=== PATIENT | male | born 1970 | race Caucasian/White ===

== ENCOUNTER → 2022-09-23 | Outpatient (CLI) | payer BC, SELFPAY ==
--- NOTE | 2022-09-23 12:34 | RAD_ITS ---
INDICATION: R LUMBAR RADICULOPATHY EXAMINATION/TECHNIQUE: X-RAY - XR Spine Lumbar Min 4 Views: AP, lateral and bilateral oblique views COMPARISON: None. FINDINGS: VERTEBRAE: Preserved vertebral body heights. No fracture, pars defect or suspicious osseous lesion. No spondylolisthesis. Preservation of the normal lumbar lordosis. No significant facet arthropathy. DISCS: Disc spaces are maintained. INCLUDED ABDOMEN: Included bowel gas pattern is non-obstructive. RAD/L/S Spine Min 4 Views IMPRESSION: Negative lumbar spine radiographs. Electronically Signed: Bruce Ruvalcaba MD at 22:32 EDT ,
[2022-09-23 15:05] LABS: Absolute Lymphocyte Count 1.95 X10^3/uL (0.83-4.51); Absolute Neutrophil Count 6.4 X10^3/uL (2.0-7.7); Basophil# 0.04 X10^3/uL; Basophil% 0.4 % (0-1); Eosinophil# 0.08 X10^3/uL; Eosinophils% 0.9 % (0-5); Hematocrit 52.4 % (40-54); Hemoglobin 17.1 g/dL (13.0-16.5); Lymphocyte # 1.95 X10^3/ul (0.83-4.51); Lymphocyte % 21.7 % (19-41); Mean Corp Hgb Conc 32.6 g/dL (32-36); Mean Corpuscular Hgb 30.3 pg (27.0-32.0); Mean Corpuscular Volume 92.9 fL (80-94); Mean Platelet Vol. 11.7 fl (6.2-12.0); Monocyte# 0.54 X10^3/uL; NRBC Flagged by Analyzer 0 % (0-5); Neutrophil # 6.37 X10^3/uL (2.7-7.7); Neutrophil % 70.9 % (47-70); Platelet Count 228 K/mm3 (150-450); RBC Distribution Width CV 13.9 % (11.6-14.6); RBC Distribution Width SD 47.5 fl (35.1-43.9); Red Blood Count 5.64 M/mm3 (4.6-6.2)
[2022-09-23 15:15] LABS: AST(SGOT) 19 U/L (15-37); Alanine Aminotransfer ALT/SGPT 29 U/L (16-61); Albumin, Serum 3.9 g/dL (3.2-5.0); Alkaline Phosphatase 105 U/L (45-117); Anion Gap 4 (5-15); BUN 12 mg/dL (7-18); BUN/Creat Ratio 11.1 RATIO (10-20); Calcium,Total 9.1 mg/dL (8.5-10.1); Chloride 107 mmol/L (98-107); Cholesterol 303 mg/dL (200); Creatinine, Serum 1.08 mg/dL (0.70-1.30); EST Glomerular Filtration Rate 76 mL/min (>60); Est Glom Filt Rate - Afr Amer 92 mL/min (>60); Glucose 100 mg/dL (74-106); High Density Lipoprotein 29 mg/dL; Potassium 3.9 mmol/L (3.5-5.1); Protein, Total 7.9 g/dL (6.4-8.2); Sodium Level 136 mmol/L (136-145); Triglycerides 235 mg/dL; Very Low Density Lipoprotein 47 mg/dL (5-40)
== END | disposition home or self-care (01) ==
PROVIDERS: PCP Family Medicine; Referring Provider Family Medicine; Visit Provider Family Medicine
DX: Z00.00 Encounter for general adult medical examination without abnormal findings (principal); M54.17 Radiculopathy, lumbosacral region
CPT/HCPCS: 36415; 72110; 80053; 80061; 84153; 85025; G0103

== ENCOUNTER 2022-11-04 08:41 | Day surgery (SDC) | payer BC, SELFPAY ==
--- NOTE | 2022-11-04 | COLBX_PTH ---
PATIENT: BRITTANY FLORES LOC: EN U#:[id number] AGE/SX: 51/M ROOM: RE11/04/[address]: Dr. Denise Rosales MD : 1970 BED: DIS: 11/04/2022 SPEC #: [id number] RECD: 11/04/22 14:24 STATUS: TORIN REQ #: [id number] VENKATESH: 11/04/22 00:[address]: Denise Rosales DEPT: SURGICAL PATHOLOGY RECD BY: Steve Mccall ENTERED: 11/05/22 07:44 SP TYPE: COLON BX OTHR DR: Dr. Bruce Brown, DO Tissues: A - Descending colon B - Rectum, NOS C - Rectum, NOS Procedures: Surgery Specimen Level IV HEADER OPERATION: Colonoscopy ? open access (MAC), biopsy, polypectomy PRE-OP DIAGNOSIS: Screening TISSUE SUBMITTED: A - Biopsy polyp descending colon, B - Polyp rectum 15, C - Biopsy rectal polyps MICROSCOPIC DIAGNOSIS A. Polyp descending colon, biopsy: Hyperplastic polyp. B. Rectum polyp, polypectomy: Fragments of tubular adenoma. C. Rectal polyps, biopsy: Fragments of hyperplastic polyp. DAJA:frantz 11/06/2022 MICROSCOPIC DESCRIPTION Slides are reviewed. GROSS DESCRIPTION A - Received in fixative is one container labeled with the patient's name and designated biopsy polyp descending colon. The specimen consists of one irregular fragment of light grace soft tissue that measures 0.3 x 0.3 x 0.1 cm. The specimen is totally submitted in one cassette. B - Received in fixative is one container labeled with the patient's name and designated polyp rectum 15. The specimen consists of a grace-pink polyp measuring 1.2 x 0.7 x 0.7 cm. The apparent base of polyp is inked and bisected. A smaller fragment of grace-pink soft tissue is also noted measuring 0.6 x 0.3 x 0.2 cm. Also a few fragments of fecal material are also noted. The entire specimen is submitted in one cassette. C - Received in fixative is one container labeled with the patient's name and designated polyp rectum biopsy. The specimen consists of multiple irregular fragments of light grace soft tissue that in aggregate measure 1.0 x 0.5 x 0.1 cm. The specimen is totally submitted in one cassette. / DAJA:frantz 11/05/2022 TC:1 CPT: 22346 x3
[2022-11-04 09:03] VITALS: BP 120/89; PULSE 91; RESP 20; TEMP 35.9; O2SAT 99; BMI 25.8
[2022-11-04] MEDS: Lactated Ringers 1,000 ML 15 ML IV (09:14)
--- NOTE | 2022-11-04 10:17 | H&P.OPEN ---
HPI - General General Date of Admission: 11/04/22 HPI Narrative BRITTANY FLORES, is a 51 M who presents for screening colonoscopy. Patient never had previous colonoscopy. Patient is adopted does not know family history. Patient has bowel movements daily denies any blood. Patient states she has had some issues with back pain and occasional right lower quadrant discomfort may be small caliber stool over the last 6 to 8 months. [facility] Medical History (Updated 10/30/22 @ 09:19 by Prudence Caldwell) Back pain Heartburn History of pain when walking Leg cramps Marijuana use Open wound Prostate disease Smoker Tinnitus Wears glasses Home Medications naproxen sodium 220 mg tablet (Aleve) 220 mg PO BID PRN Pain 09/26/22 [History Last Taken Unknown] Allergy/AdvReac Type Severity Reaction Status Date / Time No Known Allergies Allergy Unverified 11/04/22 09:03 Family History (Updated 09/26/22 @ 08:25 by Jessica Michelle) Unknown Adopted Surgical History (Updated 10/30/22 @ 09:19 by Prudence Caldwell) History of surgery on left wrist Hx of vasectomy Social History (Updated 09/26/22 @ 08:25 by Jessica Michelle) current occupational status: employed Smoking Status: Current every day smoker tobacco type: cigarettes Past Medical/Surgical History Planned Operation Planned Operative Procedure/s: CSCOPE OA Previous Hospitalizations/Surgeries HX Hospitalizations: No Any Problems With Anesthesia: No You/Your Family Experience Fever (Hyperthermia) With Anes: No Cholinesterase deficiency: No Cardiovascular Hx Hypertension: No Respiratory Hx Sleep Apnea: No Hx Respiratory Tract Infection/Cold (presently): No Do You Snore Loudly (louder than talking or can be heard): No Do You Often Feel Tired/ Fatigued/ Sleepy Dring Daytime?: No Has Anyone Observed You Stop Breathing During Sleep?: No Result (for STOP score): Negative Smoking Status: Current every day smoker Neurological Does patient have nerve stimulator: No Reproduction : No Miscellaneous Recent Exposure to Contagious Disease: No Allergies No Known Allergies Allergy (Unverified 11/04/22 09:03) Discharge Is Pt Admitted From a Usp, or a Custodial: No After D/C, Where Do you Plan to Go: Return Home Vital Signs Vital Signs Vital Signs: 11/04/22 09:03 06/05/23 09:03 Temperature 96.6 F L Temperature Source Temporal Pulse Rate 91 Respiratory Rate 20 H Respiratory Pattern Normal Blood Pressure 120/89 H Blood Pressure Mean 99 Blood Pressure Source Monitor Blood Pressure Position Semi-Fowlers Blood Pressure Location Left Arm Pulse Ox 99 Oxygen Delivery Method Room Air Weight Weight: 185 lb 3.013 oz Body Mass Index (BMI) 25.8 Physical Exam Const alert, oriented x3 and no apparent distress HEENT normocephalic and head/scalp atraumatic Resp normal respiratory effort Cardio regular rate GI soft to palpation and non-tender; Negative for non-distended Palpation: Negative for guarding Extremity no clubbing, cyanosis or edema Neuro CN's II-XII intact bilaterally Psych mental status grossly normal Assessment & Plan Assessment/Plan (1) Encounter for screening for malignant neoplasm of colon: Surgery Risks - Colonoscopy I discussed with the patient the risks of the procedure: Yes Risks Include but are not Limited To: Risks include but are not limited to: Bleeding, perforation requiring further surgery, inability to complete colonoscopy requiring barium enema.
--- NOTE | 2022-11-04 11:40 | OP.COLON_ITS ---
Patient Name: Alejandro Ann Procedure Date: 11/04/2022 10:49 AM Date of : 1970 Age: 51 Procedure: Colonoscopy Indications: Screening for colorectal malignant neoplasm Providers: Denise Rosales MD Referring MD: Denise Rosales MD Medicines: Monitored Anesthesia Care Patient Profile: This is a 51 year old male. Last Colonoscopy: none. The patient's first colonoscopy is today. Last Colonoscopy: none. The patient's first colonoscopy is today. Complications: No immediate complications. Procedure: Pre-Anesthesia Assessment: - Prior to the procedure, a History and Physical was performed, and patient medications and allergies were reviewed. The patient's tolerance of previous anesthesia was also reviewed. The risks and benefits of the procedure and the sedation options and risks were discussed with the patient. All questions were answered, and informed consent was obtained. Prior Anticoagulants: The patient has taken no previous anticoagulant or antiplatelet agents. ASA Grade Assessment: Per anesthesia. After reviewing the risks and benefits, the patient was deemed in satisfactory condition to undergo the procedure. - Prior to the procedure, a History and Physical was performed, and patient medications and allergies were reviewed. The patient's tolerance of previous anesthesia was also reviewed. The risks and benefits of the procedure and the sedation options and risks were discussed with the patient. All questions were answered, and informed consent was obtained. Prior Anticoagulants: The patient has taken no previous anticoagulant or antiplatelet agents. ASA Grade Assessment: Per anesthesia. After reviewing the risks and benefits, the patient was deemed in satisfactory condition to undergo the procedure. After I obtained informed consent, the scope was passed under direct vision. Throughout the procedure, the patient's blood pressure, pulse, and oxygen saturations were monitored continuously.The colonoscopy was performed without difficulty. The patient tolerated the procedure well. The quality of the bowel preparation was good. The colonoscope was introduced through the anus and advanced to the cecum, identified by the appendiceal orifice, ileocecal valve and palpation. Scope In: 11:07:59 AM Scope Withdrawal Time 0 hours 22 minutes 20 seconds Scope Out: 11:35:39 AM Total Procedure Duration Time 0 hours 27 minutes 40 seconds Findings: The perianal and digital rectal examinations were normal. Five sessile polyps were found in the rectum and descending colon. The polyps were less than 5 mm in size. These polyps were removed with a cold biopsy forceps. Resection and retrieval were complete. A 12 mm polyp was found in the rectum. The polyp was pedunculated. The polyp was removed with a hot snare. Resection and retrieval were complete. The exam was otherwise without abnormality on direct and retroflexion views. Impression: - Five less than 5 mm polyps in the rectum and in the descending colon, removed with a cold biopsy forceps. Resected and retrieved. - One 12 mm polyp in the rectum, removed with a hot snare. Resected and retrieved. Recommendation: - Discharge patient to home. - Resume previous diet. - Continue present medications. - Await pathology results. - Repeat colonoscopy in 3 years for surveillance based on pathology results. Procedure Code(s): --- Professional --- 28091, PT, Colonoscopy, flexible; with removal of tumor(s), polyp(s), or other lesion(s) by snare technique 34027, 59, Colonoscopy, flexible; with biopsy, single or multiple Diagnosis Code(s): --- Professional --- Z12.11, Encounter for screening for malignant neoplasm of colon K62.1, Rectal polyp D12.4, Benign neoplasm of descending colon CPT copyright 2017 [employer]. All rights reserved. The codes documented in this report are preliminary and upon blood donor recruiter supervisor review may be revised to meet current compliance requirements. MD Denise Salinas MD 11/04/2022 11:40:04 AM This report has been signed electronically. Number of Addenda: 0 Note Initiated On: 11/04/2022 10:49 AM
--- NOTE | 2022-11-04 11:40 | OP.CCLET_ITS ---
11/04/2022 Bruce Brown [address] [place] [address] Re : Colonoscopy procedure for Alejandro Ann Dear Dr. Brown This procedure was performed on Friday, November 04, 2022. My impressions and recommendations are as follows: Impressions : - Five less than 5 mm polyps in the rectum and in the descending colon, removed with a cold biopsy forceps. Resected and retrieved. - One 12 mm polyp in the rectum, removed with a hot snare. Resected and retrieved. Recommendations : - Discharge patient to home. - Resume previous diet. - Continue present medications. - Await pathology results. - Repeat colonoscopy in 3 years for surveillance based on pathology results. My findings are described in the full procedure note, which is enclosed. If I can be of further assistance, please feel free to contact me at Doctor phone number(s): , Work: . Sincerely, MD Denise Salinas MD 11/04/2022 11:40:04 AM This report has been signed electronically.
[2022-11-04 11:41] VITALS: BP 120/89; BP 121/80; PULSE 81; RESP 16; TEMP 36.4; O2SAT 95
[2022-11-04 11:45] VITALS: BP 120/89; BP 97/72; PULSE 73; RESP 16; O2SAT 97
[2022-11-04 11:50] VITALS: BP 106/75; BP 120/89; PULSE 67; RESP 16; O2SAT 97
[2022-11-04 11:54] VITALS: BP 103/84; BP 120/89; PULSE 70; RESP 16; TEMP 36.4; O2SAT 98
[2022-11-04 12:07] VITALS: BP 120/89
== END 2022-11-04 12:18 | disposition home or self-care (01) ==
LOC: EN 08:42 → AC 08:51
PROVIDERS: PCP Family Medicine; Referring Provider Surgery; Visit Provider Surgery
PROC: 0DJD8ZZ Inspection of Lower Intestinal Tract, Via Natural or Artificial Opening Endoscopic (ICD-10-PCS; CPT 45378; principal; 2022-11-04 10:10)
DX: Z12.11 Encounter for screening for malignant neoplasm of colon (principal); D12.4 Benign neoplasm of descending colon; D12.8 Benign neoplasm of rectum; Z90.49 Acquired absence of other specified parts of digestive tract; F17.210 Nicotine dependence, cigarettes, uncomplicated
CPT/HCPCS: 45380; 45385; 88305; J7120

== ENCOUNTER → 2022-11-06 | Outpatient (CLI) | payer BC, SELFPAY ==
--- NOTE | 2022-11-06 17:15 | MRI_ITS ---
EXAM: MR LUMBAR SPINE WITHOUT INTRAVENOUS CONTRAST CLINICAL INDICATION: PAIN TECHNIQUE: Multiplanar and multisequence MR images of the lumbar spine without intravenous contrast. COMPARISON: No relevant prior studies available. FINDINGS: VERTEBRAE: Unremarkable. Vertebral body heights are preserved. Normal vertebral bodies and posterior elements. Normal alignment. No spondylolisthesis. There is preservation of the normal lumbar lordosis. SPINAL CORD: Unremarkable. Normal position and signal intensity of the conus medullaris. SOFT TISSUES: Unremarkable. DISCS/SPINAL CANAL/NEURAL FORAMINA: L1-L2: Unremarkable. Normal disc height and morphology. Normal spinal canal and lateral recesses. Normal neuroforamina. L2-L3: Unremarkable. Normal disc height and morphology. Normal spinal canal and lateral recesses. Normal neuroforamina. L3-L4: Unremarkable. Normal disc height and morphology. Normal spinal canal and lateral recesses. Normal neuroforamina. L4-L5: Unremarkable. Normal disc height and morphology. Normal spinal canal and lateral recesses. Normal neuroforamina. L5-S1: Unremarkable. Normal disc height and morphology. Normal spinal canal and lateral recesses. Normal neuroforamina. MRI/Spine Lumbar (Routine) IMPRESSION: Unremarkable MRI of the lumbar spine. Electronically Signed: Dawood Hogan MD at 19:29 EDT ,
== END | disposition home or self-care (01) ==
LOC: MRI 17:09
PROVIDERS: PCP Family Medicine; Referring Provider Family Medicine; Visit Provider Family Medicine
DX: M54.17 Radiculopathy, lumbosacral region (principal)
CPT/HCPCS: 72148

== ENCOUNTER → 2022-11-13 | Outpatient (CLI) | payer BC, SELFPAY ==
--- NOTE | 2022-11-13 15:09 | ART_ITS ---
Reason For Study: RLE cold, painful, and tingling with exertion Procedure A bilateral lower extremity continuous wave Doppler with analog waveform analysis and ankle brachial indexes. Left Segmental Pressures Left brachial= 130mmHg. Left posterior tibial artery = 93mmHg. Left dorsalis pedis artery = 98mmHg. Left digit = 73 mmHg. The left dorsalis pedis waveforms are biphasic. The left posterior tibial artery waveforms are biphasic. Right Segmental Pressures Right brachial= 122mmHg. Right posterior tibial artery = 69mmHg. Right dorsalis pedis artery = 70mmHg. The right dorsalis pedis waveforms are monophasic. The right posterior tibial artery waveforms are monophasic. Indices The right ankle brachial index by the dorsalis pedis is 0.54. The right ankle brachial index by the posterior tibial artery is 0.53. The left ankle brachial index by the dorsalis pedis is 0.75. The left ankle brachial index by the posterior tibial artery is 0.72. The left digital-brachial index is 0.56. VL/Ankle Brachial Index Interpretation Summary Right MICHAEL 0.54, severe arterial insufficiency. Doppler/PVR waveforms of the rig ht ankle severely diminished. Left MICHAEL 0.75, moderate arterial insufficiency. Doppler/PVR waveforms of the le ft ankle moderately diminished. Ordering Physician: Bruce Brown Referring Physician: Bruce Brown Performed By: Kristina Lomeli RVT
== END | disposition home or self-care (01) ==
PROVIDERS: PCP Family Medicine; Referring Provider Family Medicine; Visit Provider Family Medicine
DX: I73.9 Peripheral vascular disease, unspecified (principal)
CPT/HCPCS: 93922

== ENCOUNTER → 2022-11-18 | Outpatient (CLI) | payer BC, SELFPAY ==
[2022-11-18 17:40] LABS: Creatinine, Serum 1.11 mg/dL (0.70-1.30); EST Glomerular Filtration Rate 74 mL/min (>60); Est Glom Filt Rate - Afr Amer 90 mL/min (>60)
== END | disposition home or self-care (01) ==
LOC: LAB 16:25
PROVIDERS: PCP Family Medicine; Referring Provider Surgery Trauma Surgery; Visit Provider Surgery Trauma Surgery
DX: I70.219 Atherosclerosis of native arteries of extremities with intermittent claudication, unspecified extremity (principal)
CPT/HCPCS: 36415; 82565

== ENCOUNTER → 2022-11-28 | Outpatient (CLI) | payer BC, SELFPAY ==
--- NOTE | 2022-11-28 16:59 | CT_ITS ---
ACR Level 3 findings have been noted. An addendum which confirms receipt of the report will follow. STUDY: CTA OF THE ABDOMINAL AORTA AND BILATERAL LOWER EXTREMITIES REASON FOR EXAM: Male, 52 years old. atherosclerosis with claudication. RIGHT LEG NUMBNESS AND PAIN WITH EXTERTION RADIATION DOSAGE (If Supplied By Facility): CTDIvol = ( 6.44 ) mGy, DLP = ( 1134.83 ) mGycm TECHNIQUE: Axial CT angiography multi-detector data acquisition was obtained from the to the following intravenous administration of IV 100mL Isovue-370. Axial images and MIP images were reconstructed from the axial data set. Post-processing of the angiographic images was performed, with multiplanar reformation and 3D reconstruction. Individualized dose optimization techniques were used for this CT. TECHNICAL QUALITY: Good COMPARISON: None. Descriptors of Narrowing: None (0%) Mild (< 50%) Moderate (50-70%) Severe (70-90%) Subtotal/Total Occlusion (90-100%) Non-Evaluable (technically non-diagnostic FINDINGS: Abdominal aorta: Multifocal soft and calcific plaquing without significant narrowing or aneurysmal dilatation. Celiac and superior mesenteric arteries: No demonstrated narrowing. Inferior mesenteric artery: No demonstrated narrowing. Right renal artery(arteries): No demonstrated narrowing. Left renal artery(arteries): No demonstrated narrowing. Right common iliac artery: Occluded. Right external iliac artery: Occluded Right internal iliac artery: Occluded Left common iliac artery: Mild soft plaquing without significant narrowing narrowing. Left external iliac artery: No demonstrated narrowing. Left internal iliac artery: No demonstrated narrowing. RIGHT LOWER EXTREMITY Right common femoral artery: Reconstituted via collaterals without significant narrowing. Right profundus femoris: No demonstrated narrowing. Right superficial femoral: No demonstrated narrowing. Right popliteal artery: No demonstrated narrowing. Right tibioperoneal trunk: No demonstrated narrowing. Right anterior tibial artery: No demonstrated narrowing. Right posterior tibial artery: No demonstrated narrowing. Right peroneal artery: No demonstrated narrowing. LEFT LOWER EXTREMITY Left common femoral artery: No demonstrated narrowing. Left profundus femoris: No demonstrated narrowing. Left superficial femoral: No demonstrated narrowing. Left popliteal artery: No demonstrated narrowing. Left tibioperoneal trunk: No demonstrated narrowing. Left anterior tibial artery: No demonstrated narrowing. Left posterior tibial artery: No demonstrated narrowing. Left peroneal artery: No demonstrated narrowing. Incidental findings include nonspecific fatty infiltrated liver. There is a nodule in the left adrenal measuring 2.2 x 1.55 cm which can be further assessed with MRI if clinically warranted. 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
== END | disposition home or self-care (01) ==
LOC: CT 16:58
PROVIDERS: PCP Family Medicine; Referring Provider Surgery Trauma Surgery; Visit Provider Surgery Trauma Surgery
DX: I73.9 Peripheral vascular disease, unspecified (principal)
CPT/HCPCS: 75635; Q9967

== ENCOUNTER → 2022-12-23 | Outpatient (CLI) | payer BC, SELFPAY ==
--- NOTE | 2022-12-23 09:44 | STRESSREP ---
Stress Test Report Pharmacologic myocardial perfusion stress test. 52-year-old man for preoperative evaluation for vascular surgery Resting EKG demonstrates sinus rhythm with a rate of 75 bpm. Resting blood pressure is 132/84 mmHg. 0.4 mg of regadenoson was infused per usual protocol followed by rapid intravenous saline flush injection. Continuous EKG monitoring was performed. The maximum heart rate was 108 bpm which was 64% of max impacted heart rate the maximum workload was 1 metabolic equivalent. At rest there were no ST or T wave changes noted to suggest ischemia and at peak infusion nonspecific ST changes were noted which did not meet the criteria for ischemia. No clinical angina is noted. The final blood pressure was 120/82 mmHg. Myocardial perfusion protocol. 11.9 mCi of technetium 99m sestamibi was injected at rest. 0.4 mg of regadenoson was infused per usual protocol. At peak infusion to 33.8 mCi of technetium 99m sestamibi was injected stress images were obtained stress and rest images were reconstructed and compared in the short axis vertical long and horizontal long axis. Gated images were also obtained. Perfusion SPECT analysis: Review of the stress images demonstrate normal uptake of tracer noted in all areas of the myocardium except for minimal reduction in the anterior wall is present. The resting images similar demonstrated normal uptake of tracer noted in all areas of the myocardium except for minimal reduction in anterior wall.. No areas of reversibility are noted to suggest ischemia and no previous infarct is noted. Gated SPECT analysis: The gated ejection fraction is 64%. Conclusion: Normal pharmacologic myocardial perfusion stress test. Preserved ejection fraction.
== END | disposition home or self-care (01) ==
LOC: CVS 07:05
PROVIDERS: PCP Family Medicine; Referring Provider Physician Assistant; Visit Provider Physician Assistant
DX: Z01.810 Encounter for preprocedural cardiovascular examination (principal); I70.219 Atherosclerosis of native arteries of extremities with intermittent claudication, unspecified extremity
CPT/HCPCS: 78452; 93017; A9500; A4216; J2785

== ENCOUNTER 2022-12-31 05:18 | Inpatient (IN) | payer BC, SELFPAY ==
--- NOTE | 2022-12-23 07:10 | EKG12_ITS ---
Test Reason : PRE OP Blood Pressure : / mmHG Vent. Rate : 075 BPM Atrial Rate : 075 BPM P-R Int : 160 ms QRS Dur : 092 ms QT Int : 370 ms P-R-T Axes : 064 065 036 degrees QTc Int : 413 ms Normal sinus rhythm Right atrial enlargement Borderline ECG Confirmed by PATRICIA TERESA, CARMEN ([id number]), commissioning editor ANA LAURA GUNN ([id number]) on 12/24/2022 7:10:47 AM Referred By: Pop Tenorio Confirmed By:CARMEN GOMEZ MD
[2022-12-23 10:10] LABS: Hematocrit 55.3 % (40-54); Hemoglobin 17.8 g/dL (13.0-16.5); Mean Corp Hgb Conc 32.2 g/dL (32-36); Mean Corpuscular Hgb 29.8 pg (27.0-32.0); Mean Corpuscular Volume 92.5 fL (80-94); Mean Platelet Vol. 11.1 fl (6.2-12.0); Platelet Count 213 K/mm3 (150-450); RBC Distribution Width CV 13.6 % (11.6-14.6); RBC Distribution Width SD 46.3 fl (35.1-43.9); Red Blood Count 5.98 M/mm3 (4.6-6.2); White Blood Count 11.1 K/mm3 (4.4-11.0)
[2022-12-23 10:50] LABS: Anion Gap 2 (5-15); BUN 18 mg/dL (7-18); BUN/Creat Ratio 16.4 RATIO (10-20); Chloride 108 mmol/L (98-107); Glucose 106 mg/dL (74-106); Potassium 3.9 mmol/L (3.5-5.1); Sodium Level 137 mmol/L (136-145)
[2022-12-31] VITALS (19 sets, daily range): BP systolic 112–157; BP diastolic 64–97; PULSE 77–102; RESP 10–18; TEMP 35.9–36.6; O2SAT 89–966; BMI 24.9; BMI 26.4
--- NOTE | 2022-12-31 | IMM_PTH ---
PATIENT: BRITTANY FLORES LOC: ICU U#:[id number] AGE/SX: 52/M ROOM: ICU02 RE12/31/[address]: Dr. Pop Tenorio MD : 1970 BED: 1 DIS: 01/01/2023 SPEC #: [id number] RECD: 01/01/23 13:24 STATUS: SOUT REQ #: [id number] VENKATESH: 12/31/22 00:[address]: Pop Tenorio DEPT: IMMUNOHISTOCHEMISTRY RECD BY: Isa Urbano ENTERED: 01/01/23 13:26 SP TYPE: IMMUNO OTHR DR: Dr. Bruce Brown, DO Tissues: Inguinal lymph node, NOS Procedures: BCL-2 (add) BCL-6 (add) CD10 (add) CD15 (add) CD20 (add) CD23 (add) CD3 (add) CD30 (add) CD43 (add) CD45 (add) CD5 (add) CD79A (add) KI-67 (add) P53 (add) Pankeratin (initial) PHYSICIAN & [address] [address] SPECIMEN INFORMATION: Tissue Source: Left inguinal lymph node Clinical Info: Atherosclerotic disease Specimen Number: [id number] CPT code: 96474, 25484 x14 METHODOLOGY: Deparaffinized sections of prefer/formalin-fixed tissue or PAP/DQ stained slides are incubated with monoclonal/polyclonal antibodies/oligonucleotide probes. Localization is made via biotin free immunoperoxidase method. Appropriate controls are performed and reacted as expected. Results on target cell population are indicated in the following table: RESULTS: ANTIBODY / CLONE RESULT AE1-3 (AE1/AE3/PCK26) negative CD3 (PS1) positive CD5 (SP10) positive CD10 (56C6) negative CD15 (MMA) negative CD20 (L26) positive CD23 (1B12) negative CD30 (Kamaljit-H2) negative CD43 (L60) positive CD45 (RP2/18) positive CD79a (11E3) positive BCL-2 (bcl-2/100/D5) positive BCL-6 (HA076I/A8) negative P53 (DO-7) negative, null pattern Ki-67 (30-9) positive, low These tests were developed and their performance characteristics determined by [facility]. They may not have been cleared or approved by the U.S. Food and Drug Administration. The FDA has determined that such clearance or approval is not necessary. The above immunohistochemical/dualISH markers are ordered and reviewed by the Pathologist. INTERPRETATION: Left inguinal lymph node, biopsy: Polytypic lymphoid tissue. AM:frantz 01/02/2023
[2022-12-31] MEDS: Lactated Ringers 1,000 ML 15 ML IV (05:45)
--- NOTE | 2022-12-31 07:30 | PCM.HP.BLA ---
History and Physical Allergies No Known Allergies Allergy (Verified 12/11/22 16:21) Medications naproxen sodium 220 mg tablet (Aleve) 220 mg PO BID PRN Pain 09/26/22 [History Confirmed 12/11/22] aspirin 81 mg chewable tablet 81 mg PO DAILY 11/18/22 [History Confirmed 12/11/22] cilostazol 100 mg tablet 100 mg PO BID #60 tabs 11/18/22 [Rx Confirmed 12/11/22] rosuvastatin 20 mg tablet 20 mg PO DAILY 11/18/22 [History Confirmed 12/11/22] PFSH Medical History Back pain Heartburn History of pain when walking Leg cramps Marijuana use Open wound Prostate disease Smoker Tinnitus Wears glasses Surgical History History of surgery on left wrist Hx of vasectomy Family History Unknown Adopted Social History current occupational status: employed Smoking Status: Current every day smoker tobacco type: cigarettes HPI HPI HPI: BRITTANY FLORES, is a 52 M who presents to the office today for follow up of bilateral claudication, r>l. He has had minimal improvement with pletal, symptoms continue to effect work. He had to reduce dose due to side effects. Denies rest pain or foot wounds. ROS General General: Yes fatigue and weakness; No weight change, appetite, colon cancer or breast cancer HEENT HEENT: No difficulty swallowing, eye injury, eye surgery, swollen glands or hoarseness Endo Endocrine: No thyroid disease, diabetes mellitus, thyroid cancer, Hair loss, heat intolerance or cold intolerance Skin Skin: No rash or changing moles Musc Musculoskeletal: Yes back problems; No arthritis, rheumatoid arthritis, gout or joint pain Cardio Cardiovascular: No murmur, pacemaker, heart disease, atrial fibrillation, high blood pressure, heart attack, heart stent, palpitations, shortness of breat with exertion or chest pain Psych Psychiatric: No depression, anxiety or hearing voices Resp Respiratory: No shortness of breath, No sleep apnea, No cough, No COPD, No asthma, No emphysema and No wheezing Gastro Gastrointestinal: Yes abdominal pain, No nausea or vomiting, No diarrhea, No constipation, No blood in stool, Yes acid reflux, No hemorrhoids, No ulcers, No gallbladder problem and No black,tarry stools Kyle Hematologic: Yes blood thinners, No blood disorders, No bleeding, No anemia and No blood clots Additional Details: aspirin Neuro Neurologic: No system reviewed and no additional complaints, except as documented, No as per HPI, No abnormal gait, No abnormal hearing, No abnormal movements, No abnormal speech, No behavioral changes, No burning sensations, No confusion, No convulsions, No disequilibrium, No dizziness, No localized weakness, No frequent falls, No headache(s), No lack of coordination, No loss of vision, No memory loss, Yes numbness, No other visual disturbances, No radicular pain, No restless legs, No sensory deficit, No syncope, Yes tingling, No tremor(s), Yes weakness and No other Exam Const General: cooperative, healthy appearing, comfortable, no acute distress and well developed Nutritional Appearance: well nourished Orientation: alert, awake and oriented x3 HENMT Head: normocephalic and atraumatic Ears: hearing grossly normal bilaterally Nose: external nose normal Eyes General: appearance normal, both eyes and all related structures EOM: EOM intact bilaterally Neck Neck: normal visual inspection, full ROM, no lymphadenopathy and trachea midline Thyroid: thyroid normal Lymphatic: no lymphadenopathy noted Resp Effort & Inspection: normal respiratory effort, able to speak in complete sentences, symmetric chest movement, no audible wheezes, not labored, no stridor and no use of accessory muscles Cardio Rate: regular rate Rhythm: regular rhythm Skin General: no rashes or lesions noted and no erythema Wounds: no wounds Neuro Cranial Nerves: CN's II-XI intact bilaterally and EOM intact bilaterally Speech: speech normal Gait: normal gait Motor: strength 5/5 throughout Sensory Exam: no sensory deficits noted Psych Appearance: grossly normal and well kempt Mental Status: mental status grossly normal Mood: congruent mood Speech and Movement: speech and movement normal Thought Content: normal Judgment: judgment good Coding Level of Care Code Off vis,est,level 3 Diagnoses Atherosclerosis of [place] artery of both lower extremities with intermittent claudication I70.213 Peripheral atherosclerosis location: lower extremity Laterality: bilateral Assessment and Plan Assessment and Plan (1) Atheroscler [place] arteries the extremities w/intermit claudication: Status: Chronic Qualifiers: Peripheral atherosclerosis location: lower extremity Laterality: bilateral Qualified Code(s): I70.213 - Atherosclerosis of [place] arteries of extremities with intermittent claudication, bilateral legs Comment: CTA- images reviewed, right common/external iliac occlusion, left common iliac stenosis >50%, minimal infrainguinal disease, moderate amount mural thrombus lining infrarenal aorta Plan: -would benefit from left iliac stent, fem-fem bypass -cadaver given disease inflow -does not appear to need common femoral endart, but if dissection extensive then possible sartorius flaps
[2022-12-31] MEDS: Cefazolin 2 GM in 0.9% Normal Saline 100 ML IV (08:00)
[2022-12-31] MEDS: Heparin 10,000 UNITS/10 ML Vial 10000 UNITS ×2 (08:23→09:26)
[2022-12-31] MEDS: Heparin Injection (Vial) 5,000 UNIT/ML VIAL 5000 UNIT ×2 (08:33→09:26)
--- NOTE | 2022-12-31 08:48 | LYMN_PTH ---
PATIENT: BRITTANY FLORES LOC: [facility] U#:[id number] AGE/SX: 52/M ROOM: ICU02 RE12/31/[address]: Dr. Pop Tenorio MD : 1970 BED: 1 DIS: 01/01/2023 SPEC #: [id number] RECD: 12/31/22 08:55 STATUS: TORIN REAlyssa #: [id number] VENKATESH: 12/31/22 08:[address]: Pop Tenorio DEPT: SURGICAL PATHOLOGY RECD BY: Alma Ramirez ENTERED: 12/31/22 11:10 SP TYPE: LYMPH NODE OTHR DR: Dr. Bruce Brown, DO Tissues: LYMPH NODE BIOPSY Procedures: Surgery Specimen Level IV HEADER OPERATION: Right femoral bypass, left iliac stent PRE-OP DIAGNOSIS: Atherosclerotic arteries extremities with claudication TISSUE SUBMITTED: Left inguinal lymph node MICROSCOPIC DIAGNOSIS Left inguinal lymph node, biopsy: Consistent with benign lymph node tissue. See comment. AM:frantz 01/01/2023 COMMENT The specimen is evaluated at the time of touch imprints by Dr. Garnett. Immediate Evaluation = Consistent with lymph node tissue. Immunohistochemistry ([id number]) supports the above diagnosis. Flow analysis does not reveal evidence of B-cell or T-cell lymphoma. Complete flow report is viewable in EMR. Case has been reviewed in consultation with Dr. Garnett who concurs with the above diagnosis. LUX:DAJA MICROSCOPIC DESCRIPTION Slides are reviewed. GROSS DESCRIPTION Received fresh in saline for lymphoma protocol labeled with the patient's name is a specimen designated left inguinal lymph node. The specimen consists of a piece of adipose tissue containing two nodules measuring 3.0 x 1.0 x 0.8 cm. Two nodules consistent with lymph nodes are identified measuring 1.0 and 1.5 cm in greatest dimension. Both lymph nodes are bisected. Two touch imprints are prepared. A section is also submitted for flow cytometry study. The entire specimen is submitted in one cassette. / DAJA:frantz 12/31/2022 TC:5 CPT: 03780, 19646
--- NOTE | 2022-12-31 09:20 | RAD_ITS ---
PROCEDURE: ANGIOGRAM - left common iliac artery. REASON FOR EXAM: Male, 52 years old. LT TO RT FEMORAL BYPASS, LT ILIAC STENT, POSS BILAT RADIATION DOSAGE (If Supplied By Facility): ( 165.28 ) mGycm FLUOROSCOPY TIME (if supplied): (4 minutes and 24 seconds) minutes/seconds STERILE BARRIER TECHNIQUE: The following sterile barrier precautions were used during the procedure: hand hygiene; use of 2% chlorhexidine aseptic; use of a cap, mask, sterile gown, sterile gloves, sterile full body drape, and a large sterile sheet. TECHNIQUE: (All elements of maximal sterile barrier technique followed, including US elements as applicable) Intraoperative imaging provided for left common iliac artery angiogram with stent placement. RAD/Fluoroscopy 1 Hr or Less IMPRESSION: Fluoroscopic services provided for left common iliac artery angiogram with stent placement. Electronically Signed: Kade Lo MD at 10:42 EDT ,
--- NOTE | 2022-12-31 11:35 | OP.PCM_ITS ---
Report of Operation Date of Procedure: 12/31/22 Pre-Operative Diagnosis: atherosclerosis with claudication bilateral lower extr emities Post-Operative Diagnosis: same Surgery/Procedure Performed:: left common iliac stent left to right femoral-femoral bypass with cadaver Surgeon: Pop Tenorio Type of Anesthesia: General Estimated Blood Loss (mL): 19 Grafts/Implants Used: cadaver femoral-popliteal artery
--- NOTE | 2022-12-31 11:35 | PCM.OPRPT ---
Report of Operation Date of Procedure: 12/31/22 Pre-Operative Diagnosis: atherosclerosis with claudication bilateral lower extremities Post-Operative Diagnosis: same Surgery/Procedure Performed:: left common iliac stent left to right femoral-femoral bypass with cadaver Surgeon: Pop Tenorio Type of Anesthesia: General Estimated Blood Loss (mL): 19 Description of Procedure: HPI: Patient is a 52-year-old male with lifestyle limiting claudication in the bilateral lower extremities, right worse than left. He is currently working in the claudication symptoms are limiting his ability to complete tasks and maintain employment. He did not tolerate Pletal and has had no significant improvement with exercise. He had a CT scan which revealed total occlusion of the right common and external iliac arteries with a relatively well-preserved infrainguinal system. He also has a diffuse stenosis of the left common iliac artery greater than 50%. He is taken now for endovascular treatment of the left common iliac to optimize inflow and a femoral to femoral bypass. Of note he also has a fair bit of diffuse either mural thrombus or plaque in the entirety of the infrarenal aorta which causes approximately a 30% stenosis. Given the diffuse nature of the aortic disease as well as that the aortic lumen is consistent with the lumen of the only outflow vessel which is the left iliac system felt that this did not need intervention at this time. However given his impaired inflow cadaver femoral-popliteal artery was utilized as it would hopefully he will do better to any diminished inflow pressure. Description of procedure: Upon obtaining informed consent and verification correct patient procedure site patient taken the operating was placed under general anesthesia. He was then positioned prepped and draped in usual sterile fashion a time was performed. Oblique incision was made over the right femoral artery and Bovie left cautery to dissect self-retaining retractors were put in position and further dissection carried out the inguinal ligament which was freed along its inferior border. The femoral sheath was then incised and exposing the common femoral artery and self-retaining retraction of deep in the wound. The femoral sheath was then incised vertically and retractors then placed deeper into the wound. Further dissection carried down to the inguinal ligament which was then freed along the inferior border and the femoral sheath incised exposing the common femoral artery. The femoral sheath was then incised vertically and self-retaining retractors moved deeper in the wound. Sharp dissection used to dissect free the proximal common femoral artery and a right angle used to place a vessel loop. We then dissected distally down to just above the bifurcation a right angle used to place a vessel loop. The vessel was soft with no palpable or visible plaque in the CT scan revealed no significant femoral disease. Next oblique incision made over the left common femoral artery and Bovie electrocautery used to dissect down through subcutaneous tissue. Self-retaining retractors then placed in the position and further dissection carried down to the angle ligament. The femoral sheath was incised vertically exposing the common femoral artery and sharp dissection then used to dissect free proximally and a right angle used to place a vessel loop. Then carried our dissection distally onto the vessel just above the bifurcation and a right angle used to place a vessel loop. There is no significant plaque in the common femoral either by inspection or palpation and the CT scan suggests no significant stenosis. There was a very diminished pulse within the left common femoral artery indicative of the impaired inflow. A tunneler was then used to tunnel from the right to left femoral incisions the patient heparinized and allowed to circulate for 5 minutes. Serial heparin dosing was performed based on ACT results. Next the left common femoral artery was accessed in retrograde fashion with micropuncture needle wire. This was then exchanged for micropuncture sheath through the hand-injection iliofemoral angiogram was performed which revealed satisfactory positioning with no extravasation or dissection. Through the micropuncture sheath [place] wire was advanced into the abdominal aorta the micropuncture sheath exchanged for a 7 [place] sheath. Magnified imaging subtraction angiography of the left iliac system was performed via the femoral sheath and the extent of lesion marked on the screen. Given the length needed to treat a pair of Cook's over 8 x 4 paclitaxel coated self-expanding stents were brought in the field prep for delivery engineer instructions. The initial stent was advanced to the ostia of the common iliac artery and deployed in position. The delivery system was then withdrawn and the second stent advanced into position with satisfactory overlap and distal position just above the iliac bifurcation within nondiseased vessel. The second stent was then deployed and the entirety of the length of stented segment angioplasty with an 8 x 4 angioplasty balloon. Repeat angiography confirmed satisfactory stent positioning with no extravasation or dissection and no residual stenosis. There is improved pulse in the left common femoral artery at this point. The wire and sheath were then withdrawn and the vessels occluded vessel loop. The arteriotomy was then extended with Ricks scissors and a cadaver femoral-popliteal artery which had been thawed per delivery engineer instructions was then beveled to match the arteriotomy and anastomosis performed using a 6-0 Prolene in a running fashion. After completing suture line the vessels were flushed and the graft and the graft marked to maintain orientation. The graft was then clamped just beyond the anastomosis and the distal end secured to the tunneler and pulled through the right femoral incision. The right femoral vessels then occluded Vesseloops in longitudinal arteriotomy created with 11 blade extended Ricks scissors. The graft was then cut the length and beveled to match the arteriotomy and anastomosis performed using 6-0 Prolene in a running fashion. Prior to completing suture and the vessels were back flushed and after completing the suture line the graft was allowed to flush retrograde into the occluded iliac system before reestablishing antegrade flow in the right lower extremity. Satisfactory stasis was noted at the suture line and there is palpable pulse proximal to and distal to each of the femoral anastomoses as well as a palpable pulse within the graft. The vessel interrogated Doppler off on the patent with low resistance signal. The incision was then inspected for hemostasis and closed with 2-0 Vicryl followed by 4 Monocryl Dermabond for the skin Prevena close incision wound vacs were then applied and the patient awakened anesthesia. Was then taken to recovery in anticipated admission to the intensive care unit for hemodynamic monitoring and serial vascular exams. Grafts/Implants Used: cadaver femoral-popliteal artery
[2022-12-31] MEDS: Clopidogrel Bisulfate 300 MG Tablet PO (12:09)
[2022-12-31] MEDS: 0.45% Normal Saline 1,000 ML 100 ML IV ×2 (13:14→21:24)
[2022-12-31] MEDS: Acetaminophen 500 MG Tablet 1000 MG PO ×2 (14:17→21:20)
[2022-12-31] MEDS: Atorvastatin Calcium 40 MG Tablet PO (21:21)
[2022-12-31] MEDS: Cilostazol 50 MG Tablet 100 MG PO (21:21)
[2023-01-01] VITALS (13 sets, daily range): BP systolic 104–127; BP diastolic 54–80; PULSE 65–86; RESP 12–17; TEMP 36.1–36.9; O2SAT 91–100; BMI 26.3
--- NOTE | 2023-01-01 00:36 | NURSING ---
Urinary cath removed prior to shift by Amanuel Alvarenga
[2023-01-01 03:44] LABS: Absolute Lymphocyte Count 1.09 X10^3/uL (0.83-4.51); Absolute Neutrophil Count 11.1 X10^3/uL (2.0-7.7); Basophil# 0.01 X10^3/uL; Basophil% 0.1 % (0-1); Eosinophil# 0.01 X10^3/uL; Eosinophils% 0.1 % (0-5); Hematocrit 44.1 % (40-54); Hemoglobin 14.7 g/dL (13.0-16.5); Lymphocyte # 1.09 X10^3/ul (0.83-4.51); Lymphocyte % 8.4 % (19-41); Mean Corp Hgb Conc 33.3 g/dL (32-36); Mean Corpuscular Hgb 30.4 pg (27.0-32.0); Mean Corpuscular Volume 91.1 fL (80-94); Mean Platelet Vol. 10.9 fl (6.2-12.0); Monocyte# 0.79 X10^3/uL; Monocyte% 6.1 % (0-10); NRBC Flagged by Analyzer 0 % (0-5); Neutrophil % 84.9 % (47-70); Platelet Count 207 K/mm3 (150-450); RBC Distribution Width CV 13.7 % (11.6-14.6); RBC Distribution Width SD 46.1 fl (35.1-43.9); Red Blood Count 4.84 M/mm3 (4.6-6.2); White Blood Count 13.1 K/mm3 (4.4-11.0)
[2023-01-01 03:57] LABS: Anion Gap 4 (5-15); BUN 18 mg/dL (7-18); BUN/Creat Ratio 17.5 RATIO (10-20); Calcium,Total 8.3 mg/dL (8.5-10.1); Chloride 108 mmol/L (98-107); Creatinine, Serum 1.03 mg/dL (0.70-1.30); EST Glomerular Filtration Rate 81 mL/min (>60); Est Glom Filt Rate - Afr Amer 98 mL/min (>60); Estimated Creatinine Clearance 89.35 ml/min; Glucose 173 mg/dL (74-106); Potassium 3.8 mmol/L (3.5-5.1); Sodium Level 140 mmol/L (136-145)
[2023-01-01] MEDS: 0.45% Normal Saline 1,000 ML 100 ML IV (05:37)
[2023-01-01] MEDS: Acetaminophen 500 MG Tablet 1000 MG PO (05:37)
[2023-01-01 07:50] LABS: ACT Activated Clotting Time 137 sec (74-137)
[2023-01-01 07:51] LABS: ACT Activated Clotting Time 245 sec (74-137)
[2023-01-01 07:51] LABS: ACT Activated Clotting Time 287 sec (74-137)
[2023-01-01 07:53] LABS: ACT Activated Clotting Time 221 sec (74-137)
[2023-01-01] MEDS: Aspirin 81 MG TAB.CHEW PO (08:36)
[2023-01-01] MEDS: Clopidogrel Bisulfate 75 MG Tablet PO (08:36)
[2023-01-01] MEDS: Enoxaparin 40 MG/0.4 ML Syringe SC (08:36)
--- NOTE | 2023-01-01 10:20 | CASEMGMT ---
RN?CM?CELL GENETICIST?CM?to room to meet with patient for initial transition planning/care coordination?assessment.?RN?CM?introduced self and role at [facility].? Pt voices understanding and consents to?assessment?at this time.? Pt resting in bed in no distress at this time.? Pt is A/O at this time and answers all questions appropriately.?? Care providers, pharmacy, and demographics verified/updated at this time. PCP: Dr Brown Specialists: Dr Tenorio-vascular Preferred [facility]acy: [facility] Insurance: Tat Momoli Prescription Benefit:?Yes Living Will/HPOA:?Does not currently have LW or HCPOA, but arrangements are in the process of being made to have this completed. Pt declines wanting to meet w/SW . LNOK: 2 adult children. Mother, Bernie Living Arrangements: Lives w/mother. States is very independent. Transportation:?Pt states drives self and states no transportation concerns at this time.? DME: ? Denies using any DME and denies needs. HHC/SNF: No hx of either. Has done OP therapy in the past. Pt wishes to return home and states has no concerns with going home at time of discharge.? CM?to follow for any discharge planning/needs.? Pt voices no concerns/needs at this time.? Advised pt to ask for?CM?if any questions/concerns/needs arise.? Voices understanding. PLAN:??Home Arthur BSN?RN?CM
--- NOTE | 2023-01-01 11:19 | PN.SURG_ITS ---
Subjective Subjective Patient is doing well. He has been ambulating with minimal difficulty, only expected discomfort at the incision/bypass sites. He reports his claudication symptoms have resolved. He has mild burning with urination, but otherwise urinating without difficulty and denies hematuria. Tolerating full diet. Pain well controlled. Objective Data Objective Data Vital Signs: Vital Signs Temp Pulse Resp BP Pulse Ox O2 Del Method O2 Flow Rate 97.8 F 83 12 111/77 98 Room Air 2 01/01/23 08:00 01/01/23 11:00 01/01/23 11:00 01/01/23 11:00 01/01/23 11:00 01/01/23 11:00 12/31/22 14:00 FiO2 35 01/01/23 06:00 Oxygen Flow Rate (L/min) 2 Oxygen Delivery Method Room Air Weight: 188 lb 11.451 oz Body Mass Index (BMI) 26.3 Intake & Output: Intake and Output for Last 24 Hours 12/30/22 12/31/22 01/01/23 23:59 23:59 23:59 Intake Total 1029.92 / 1029.92 1561.67 / 1561.67 Output Total 600 / 600 0 / 0 Balance 429.92 / 429.92 1561.67 / 1561.67 Lab / Micro Data 01/01/23 03:35 01/01/23 03:35 Labs: Laboratory Results - last 24 hr 12/31/22 08:08: Activated Clotting Time 137 12/31/22 09:18: Activated Clotting Time 287 H 12/31/22 09:58: Activated Clotting Time 245 H 12/31/22 10:41: Activated Clotting Time 221 H 01/01/23 03:35: WBC 13.1 H, RBC 4.84, Hgb 14.7, Hct 44.1, MCV 91.1, MCH 30.4, MCHC 33.3, RDW Std Deviation 46.1 H, RDW Coeff of [place] 13.7, Plt Count 207, MPV 10.9, Immature Gran % (Auto) 0.400, Neut % (Auto) 84.9 H, Lymph % (Auto) 8.4 L, [place] % (Auto) 6.1, Eos % (Auto) 0.1, Baso % (Auto) 0.1, Absolute Neuts (auto) 11.1 H, Absolute Lymphs (auto) 1.09, Nucleated RBC % 0, Sodium 140, Potassium 3.8, Chloride 108 H, Carbon Dioxide 28.0, Anion Gap 4 L, BUN 18, Creatinine 1. 03, Estim Creat Clear Calc 89.35, Est GFR (MDRD) Af Amer 98, Est GFR (MDRD) Non- Af 81, BUN/Creatinine Ratio 17.5, Glucose 173 H, Calcium 8.3 L Physical Exam Const alert, oriented x3 and no apparent distress General Appearance: cooperative and comfortable HEENT normocephalic, head/scalp atraumatic, hearing grossly normal bilaterally, exter nal ears normal and external nose normal Eyes General Eye: normal appearance of both eyes Neck General: normal visual inspection and trachea midline Resp normal respiratory effort, normal air movement, no retractions and no use of accessory muscles Effort and Inspection: able to speak in complete sentences; Negative for labored or stridor Extremity no clubbing, cyanosis or edema Extremity Narrative: Palpable left DP/PT pulses. Good, stable right DP/PT signals. Bilateral groin incision sites with vacuum dressing in place, maintaining seal. No significant swelling, bruising, redness, warmth, drainage. Neuro oriented x3, CN's II-XII intact bilaterally, moves all extremities, no focal motor deficits and no sensory deficits noted Speech: speech normal Psych Appearance: grossly normal Attitude: calm and engaged Activity / Motor Behavior: appropriate eye contact Speech: normal speech Mood & Affect: euthymic mood Assessment & Plan Assessment/Plan (1) Atheroscler [place] arteries the extremities w/intermit claudication: QUALIFIERS: Peripheral atherosclerosis location: lower extremity Laterality: bilateral Qualified Code(s): I70.213 - Atherosclerosis of [place] arteries of extremities with intermittent claudication, bilateral legs (2) S/P femoral-femoral bypass surgery: PLAN: Plan Patient is s/p left to right femoral-femoral bypass and left iliac artery stenting on 12/31/2022. He has been hemodynamically stable. He has been ambulating very well and with resolved claudication. Tolerating diet, pain well-controlled. Burning with urination secondary to velasquez catheter placement, should resolve over the next few days. Will continue Plavix 75mg daily in addition to ASA and statin. Anticipate discharge this afternoon.
--- NOTE | 2023-01-01 11:36 | PCM.DC.SUM ---
Providers Date of Admission: 12/31/22 Date of Discharge: 01/01/23 Primary Care Physician: Dr. 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[place] arteries the extremities w/intermit claudication: Status: Chronic Code(s): I70.219 - Atherosclerosis of [place] arteries of extremities with intermittent claudication, unspecified extremity Qualifiers: Laterality: bilateral Peripheral atherosclerosis location: lower extremity Qualified Code(s): I70.213 - Atherosclerosis of [place] arteries of extremities with intermittent claudication, bilateral legs (2) S/P femoral-femoral bypass surgery: Status: Acute Code(s): Z95.828 - Presence of other vascular implants and grafts Plan Patient is s/p left to right femoral-femoral bypass and left iliac artery stenting on 12/31/2022. He has been hemodynamically stable. He has been ambulating very well and with resolved claudication. Tolerating diet, pain well-controlled. Burning with urination secondary to velasquez catheter placement, should resolve over the next few days. Will continue Plavix 75mg daily in addition to ASA and statin. Anticipate discharge this afternoon. Medications at Discharge Home Medications naproxen sodium 220 mg tablet (Aleve) 220 mg PO BID PRN Pain 09/26/22 aspirin 81 mg chewable tablet 81 mg PO DAILY SUPPLEMENT 11/18/22 rosuvastatin 20 mg tablet 20 mg PO DAILY CHOLESTEROL 11/18/22 cilostazol 100 mg tablet 100 mg PO QHS PVD 12/24/22 clopidogrel 75 mg tablet 75 mg PO DAILY #90 tabs 01/01/23 oxycodone 5 mg tablet 5 mg PO Q8H PRN PRN Pain Score 4-10 4 days #12 tabs 01/01/23 Hospital Course Summary of Care Provided Hospital Course: Patient underwent left to right fem-fem bypass, left iliac stenting on 12/31/22. He was routinely admitted to the ICU postoperatively for hemodynamic monitoring. He remained hemodynamically stable throughout his admission. His prior lower extremity pain has resolved and he is ambulating well. He was initiated on Plavix with a loading dose of 300mg on POD#0 and to continue with Plavix 75mg daily for anticipated 6 months. He will follow-up in the office in 2-4 weeks to assess his recovery and coordinate initial postoperative imaging. He has bilateral vacuum dressings over bilateral groin incision sites which will stay on for 1 week, he was instructed how to remove and dispose of these at home. Physical Exam Const alert, oriented x3 and no apparent distress General Appearance: cooperative and comfortable HEENT normocephalic, head/scalp atraumatic, hearing grossly normal bilaterally, external ears normal and external nose normal Eyes General Eye: normal appearance of both eyes Neck General: normal visual inspection and trachea midline Resp normal respiratory effort, normal air movement, no retractions and no use of accessory muscles Effort and Inspection: able to speak in complete sentences; Negative for labored or stridor Extremity no clubbing, cyanosis or edema Extremity Narrative: Palpable left DP/PT pulses. Good, stable right DP/PT signals. Bilateral groin incision sites with vacuum dressing in place, maintaining seal. No significant swelling, bruising, redness, warmth, drainage. Neuro oriented x3, CN's II-XII intact bilaterally, moves all extremities, no focal motor deficits and no sensory deficits noted Speech: speech normal Psych Appearance: grossly normal Attitude: calm and engaged Activity / Motor Behavior: appropriate eye contact Speech: normal speech Mood & Affect: euthymic mood Weight / BMI Weight Weight: 188 lb 11.451 oz Body Mass Index (BMI) 26.3 ABG / Lab / Microbiology Data 01/01/23 03:35 01/01/23 03:35 Laboratory: Laboratory Results - last 24 hr 12/31/22 08:08: Activated Clotting Time 137 12/31/22 09:18: Activated Clotting Time 287 H 12/31/22 09:58: Activated Clotting Time 245 H 12/31/22 10:41: Activated Clotting Time 221 H 01/01/23 03:35: WBC 13.1 H, RBC 4.84, Hgb 14.7, Hct 44.1, MCV 91.1, MCH 30.4, MCHC 33.3, RDW Std Deviation 46.1 H, RDW Coeff of [place] 13.7, Plt Count 207, MPV 10.9, Immature Gran % (Auto) 0.400, Neut % (Auto) 84.9 H, Lymph % (Auto) 8.4 L, Ralls % (Auto) 6.1, Eos % (Auto) 0.1, Baso % (Auto) 0.1, Absolute Neuts (auto) 11.1 H, Absolute Lymphs (auto) 1.09, Nucleated RBC % 0, Sodium 140, Potassium 3.8, Chloride 108 H, Carbon Dioxide 28.0, Anion Gap 4 L, BUN 18, Creatinine 1.03, Estim Creat Clear Calc 89.35, Est GFR (MDRD) Af Amer 98, Est GFR (MDRD) Non-Af 81, BUN/Creatinine Ratio 17.5, Glucose 173 H, Calcium 8.3 L D/C Instructions Discharge Diet: No restrictions May shower in (days): 1 Weight Bearing Status: Weight bearing as tolerated Lifting Restricted to (Lbs): 20 Lifting Restrictions: Do not lift greater than 20 pounds for 3 weeks Call your doctor if your incision/area has: Sudden Increased Bleeding, Increased Pain/ Swelling and Foul Smelling Discharge Call your doctor if you observe: Fever of 101 or Higher and Uncontrolled pain Remove Dressing in: 6 days Additional Dressing/Incision Instructions: Your bilateral groin incision sites are covered with Provena vacuum dressings. You may remove these dressings on Friday01/06/23 as demonstrated. Once removed, you may throw the entire unit in the garbage. If you have any questions or concerns about this please contact our office at [phone]. If these units begin to alarm or lose seal and you are unable to re-establish the seal/stop the alarm, it is okay to remove the dressing early as needed. The incision sites are closed with skin glue which will continue to protect them once the dressing has been removed. The glue will peel/flake off on its own over the next few weeks, try not to pick at it. Additional Instructions: You may shower and allow soap and water to rinse over the incision sites. Pat dry after. Do not submerge the incision sites in water such as for a bath, swimming, hot tub etc. for 3 weeks. Do not lift greater than 20 pounds for 3 weeks. Otherwise, ambulate and go about normal activity as tolerated. You were started on a new medication, Plavix 75mg. Please continue to take this daily as directed in addition to you aspirin 81mg daily. You were prescribed oxycodone 5mg to take every 8 hours as needed for pain. Take only as prescribed. You may take tylenol with this medication as well as needed. Follow-up in the office in 2-4 weeks, the office will call you to schedule if an appointment has not already been made. Please Follow Up With: Pop Tenorio MD When: 2-4 weeks Meaningful Use Info Meaningful Use Diagnoses (Choose all that apply): None applicable Discharge Plan Admission Admit Date/Time: 12/31/22 05:18 Primary Reason for Your Visit: femoral-femoral bypass Attending Provider: Pop Tenorio Primary Care Provider: Bruce Brown Discharge Orders/Prescriptions Prescriptions: New clopidogrel 75 mg Tablet 75 mg PO DAILY Qty: 90 1RF oxycodone 5 mg Tablet 5 mg PO Q8H PRN PRN (Reason: Pain Score 4-10) 4 Days Qty: 12 0RF Continued naproxen sodium [Aleve] 220 mg tablet 220 mg PO BID PRN (Reason: Pain) aspirin 81 mg tablet,chewable 81 mg PO DAILY rosuvastatin 20 mg tablet 20 mg PO DAILY cilostazol 100 mg tablet 100 mg PO QHS Referrals / Follow Up: Bruce Brown DO [Primary Care Provider] - Disposition Disposition (needs filled in before D/C Order can be placed): Home, Self Care
== END 2023-01-01 12:15 | disposition home or self-care (01) | DRG 253 ==
LOC: ACINP 09:10 → ICU 12:00
PROVIDERS: Admitting Provider Surgery Trauma Surgery; PCP Family Medicine; Referring Provider Surgery Trauma Surgery; Visit Provider Surgery Trauma Surgery
PROC: 047D35Z Dilation of Left Common Iliac Artery with Two Drug-eluting Intraluminal Devices, Percutaneous Approach (ICD-10-PCS; principal; 2022-12-31 07:00)
DX: I70.213 Atherosclerosis of native arteries of extremities with intermittent claudication, bilateral legs (principal); I70.92 Chronic total occlusion of artery of the extremities; F17.210 Nicotine dependence, cigarettes, uncomplicated; Z79.02 Long term (current) use of antithrombotics/antiplatelets; Z79.82 Long term (current) use of aspirin; Z79.899 Other long term (current) drug therapy
CPT/HCPCS: 36415; 76000; 80047; 80048; 85025; 85027; 85347; 86850; 86900; 86901; 86920; 86922; 88305; 88341; 88342; 93005; 94668; 94762; 97802; 99252; 99406; A4648; C1769; C1894; J7040; J7120; C1725; G0463; J2405

== ENCOUNTER → 2023-03-20 | Outpatient (CLI) | payer BC, SELFPAY ==
--- NOTE | 2023-03-20 14:04 | ART_ITS ---
Reason For Study: S/P Fem - Fem BPG Procedure A bilateral lower extremity continuous wave Doppler with analog waveform analysis and ankle brachial indexes. Left Segmental Pressures Left brachial= 139mmHg. Left posterior tibial artery = 142mmHg. Left dorsalis pedis artery = 146mmHg. The left posterior tibial artery waveforms are triphasic. The left dorsalis pedis waveforms are triphasic. Right Segmental Pressures Right brachial= 132mmHg. Right posterior tibial artery = 135mmHg. Right dorsalis pedis artery = 141mmHg. The right posterior tibial artery waveforms are triphasic. The right dorsalis pedis waveforms are triphasic. Indices The right ankle brachial index by the posterior tibial artery is 0.97. The right ankle brachial index by the dorsalis pedis is 1.01. The left ankle brachial index by the posterior tibial artery is 1.02. The left ankle brachial index by the dorsalis pedis is 1.05. VL/Ankle Brachial Index Interpretation Summary Right MICHAEL 1.01, normal. Doppler/PVR waveforms of the right ankle normal at rest . Left MICHAEL 1.05, normal. Doppler/PVR waveforms of the left ankle normal at rest. Ordering Physician: Bibi Reyes Referring Physician: Bruce Brown Performed By: Hima Lobo RVT
--- NOTE | 2023-03-20 14:04 | ADU_ITS ---
Reason For Study: S/P Fem - Fem BPG Right Velocities Left Velocities Ext. Iliac Artery, dist = 87.2 cm./sec. Ext Iliac Artery, dist = 163.5 cm/s cm./sec. Common Femoral Artery, mid = 117.6 cm./sec. Common Femoral Artery, mid = 176.2 cm./sec. Supf Femoral Artery, prox = 53.9 cm./sec. Supf. Femoral Artery, prox = 127.1 cm./sec. Supf Femoral Artery, mid = 50.3 cm./sec. Supf. Femoral Artery, mid = 65.6 cm./sec. Supf Femoral Artery, dist. = 44.3 cm./sec. Supf. Femoral Artery, dist = 63.4 cm./sec. Profunda Femoral Artery = 39.6 cm./sec. Profunda Femoral Artery = 60.1 cm./sec. Popliteal Artery, mid = 36.1 cm./sec. Popliteal Artery, mid = 41.7 cm./sec. Post. Tibial Artery, prox = 41.8 cm./sec. Post. Tibial Artery, prox = 35.1 cm./sec. Post. Tibial Artery, mid = 45.5 cm./sec. Post Tibial Artery, mid = 40.6 cm./sec. Post. Tibial Artery, dist = 38.0 cm./sec. Post Tibial Artery, dist. = 43.9 cm./sec. Peroneal Artery, prox = 34.2 cm./sec. Peroneal Artery, prox = 34.0 cm./sec. Peroneal Artery, mid = 41.8 cm./sec. Peroneal Artery, mid = 27.4 cm./sec. Peroneal Artery,dist = 38.0 cm./sec. Peroneal Artery,dist. = 15.6 cm./sec. Ant. Tibial Artery, prox = 20.0 cm./sec. Ant.Tibial Artery, prox = 45.5 cm./sec. Ant. Tibial Artery, mid = 19.1 cm./sec. Ant Tibial Artery, mid = 41.2 cm./sec. Ant. Tibial Artery, dist = 49.3 cm./sec. Ant. Tibial Artery, distal = 53.1 cm./sec. Bypass graft, prox. anastamosis LT SCALPING MACHINE OPERATOR = 278.1 cm./sec. Bypass graft, prox = 171.0 cm./sec. Bypass graft, mid = 98.6 cm./sec. Bypass graft, dist = 85.4 cm./sec. Bypass graft, dist anastamosis RT SCALPING MACHINE OPERATOR = 146.9 cm./sec. Right Graft Findings A bypass graft is noted. The proximal anastamosis of the bypass graft is from the Lt common femoral artery. The distal anastamosis of the graft is in the Rt common femoral artery. Procedure The exam was diagnostic. Exam performed in department. /US Art Duplex Bilat Lower Ext Interpretation Summary Left to right femoral-femoral bypass graft patent with normal velocities and no evidence of stenosis Right lower extremity arteries patent with normal velocoties and waveforms thro ughout. Left lower extremity arteries patent with normal velocoties and waveforms throu ghout. Ordering Physician: Bibi Reyes Referring Physician: Bruce Brown Performed By: Hima Lobo RVT
== END | disposition home or self-care (01) ==
LOC: CVS 14:03
PROVIDERS: PCP Family Medicine; Referring Provider Physician Assistant; Visit Provider Physician Assistant
DX: Z48.812 Encounter for surgical aftercare following surgery on the circulatory system (principal); I70.219 Atherosclerosis of native arteries of extremities with intermittent claudication, unspecified extremity; Z95.828 Presence of other vascular implants and grafts
CPT/HCPCS: 93922; 93925

== ENCOUNTER → 2023-07-14 | Outpatient (CLI) | payer BC, SELFPAY ==
--- NOTE | 2023-07-14 07:49 | ART_ITS ---
Reason For Study: HX LT to RT FEM/FEM BPG Procedure A bilateral lower extremity continuous wave Doppler with analog waveform analysis and ankle brachial indexes. Left Segmental Pressures Left brachial= 122mmHg. Left posterior tibial artery = 127mmHg. Left dorsalis pedis artery = 121mmHg. Left digit = 130 mmHg. The left posterior tibial artery waveforms are triphasic. The left dorsalis pedis waveforms are triphasic. Right Segmental Pressures Right brachial= 119mmHg. Right posterior tibial artery = 123mmHg. Right dorsalis pedis artery = 136mmHg. Right digit = 111 mmHg. The right posterior tibial artery waveforms are triphasic. The right dorsalis pedis waveforms are triphasic. Indices The right ankle brachial index by the posterior tibial artery is 1.01. The right ankle brachial index by the dorsalis pedis is 1.11. The right digital-brachial index is 0.91. The left ankle brachial index by the posterior tibial artery is 1.04. The left ankle brachial index by the dorsalis pedis is 0.99. The left digital-brachial index is 1.07. VL/Ankle Brachial Index Interpretation Summary Right MICHAEL 1.11, normal. TBI and Doppler/PVR waveforms of the right ankle normal at rest. Left MICHAEL 1.04, normal. TBI and Doppler/PVR waveforms of the left ankle normal a t rest. Ordering Physician: Bibi Reyes Referring Physician: Bruce Brown Performed By: Hima Lobo RVT
--- NOTE | 2023-07-14 07:49 | ADU_ITS ---
Reason For Study: Lt to Rt FEM/FEM BPG Right Velocities Left Velocities LT Fem to Rt Fem BPG noted Ext Iliac Artery, dist = 116.6 cm./sec. Bypass graft, prox [place] vessel (LT Ex Iliac/SHIRT HEMMER)Common Femoral Artery, mid = 111.2 cm./sec. = 122.2 cm./sec. Supf. Femoral Artery, prox = 65.8 cm./sec. Bypass graft, prox. anastamosis = 277.0 cm./sec. Supf. Femoral Artery, mid = 41.7 cm./sec. Bypass graft, mid = 63.7 cm./sec. Supf. Femoral Artery, dist = 49.3 cm./sec. Bypass graft, dist anastamosis = 296.7 cm./sec. Profunda Femoral Artery = 45.0 cm./sec. Bypass graft, dist [place] vessel (Rt SHIRT HEMMER/SFA) = Popliteal Artery, mid = 36.2 cm./sec. 157.8 cm./sec. Post. Tibial Artery, prox = 41.7 cm./sec. Ext. Iliac Artery, dist = 32.7 cm./sec. Post Tibial Artery, mid = 35.1 cm./sec. Common Femoral Artery, mid = 157.8 cm./sec. Post Tibial Artery, dist. = 32.9 cm./sec. Supf Femoral Artery, prox = 42.8 cm./sec. Peroneal Artery, prox = 27.4 cm./sec. Supf Femoral Artery, mid = 37.3 cm./sec. Peroneal Artery, mid = 17.0 cm./sec. Supf Femoral Artery, dist. = 29.6 cm./sec. Peroneal Artery,dist. = 24.8 cm./sec. Profunda Femoral Artery = 113.8 cm./sec. Ant.Tibial Artery, prox = 24.3 cm./sec. Popliteal Artery, mid = 24.8 cm./sec. Ant Tibial Artery, mid = 33.4 cm./sec. Post. Tibial Artery, prox = 22.0 cm./sec. Ant. Tibial Artery, distal = 11.6 cm./sec. Post. Tibial Artery, mid = 24.1 cm./sec. Post. Tibial Artery, dist = 31.2 cm./sec. Peroneal Artery, prox = 26.3 cm./sec. Peroneal Artery, mid = 32.7 cm./sec. Peroneal Artery,dist = 22.0 cm./sec. Ant. Tibial Artery, prox = 13.0 cm./sec. Ant. Tibial Artery, mid = 14.2 cm./sec. Ant. Tibial Artery, dist = 26.3 cm./sec. Procedure The exam was diagnostic. Exam performed in department. VL/US Art Duplex Bilat Lower Ext Interpretation Summary Patent left to right femoral bypass with elevated velocities throughout. Normal velocities and waveforms throughout bilateral lower extremities Ordering Physician: Bibi Reyes Referring Physician: Pop Tenorio Performed By: Hima Lobo, RVT
== END | disposition home or self-care (01) ==
LOC: CVS 07:49
PROVIDERS: PCP Family Medicine; Referring Provider Surgery Trauma Surgery; Visit Provider Surgery Trauma Surgery
DX: Z48.812 Encounter for surgical aftercare following surgery on the circulatory system (principal); I70.213 Atherosclerosis of native arteries of extremities with intermittent claudication, bilateral legs; Z95.828 Presence of other vascular implants and grafts
CPT/HCPCS: 93922; 93925

== ENCOUNTER → 2024-03-08 | Outpatient (CLI) | payer BC, SELFPAY ==
--- NOTE | 2024-03-08 14:18 | ADU_ITS ---
Reason For Study: S/P left to right fem-fem bypass, Left VINCENT stent Right Velocities Left Velocities LT Fem to Rt Fem BPG noted Common Femoral Artery, mid = 123.5 cm./sec. Prox to bypass, Lt EIA distal = 167.6 cm/sec. Supf. Femoral Artery, prox = 62.9 cm./sec. Bypass graft, prox anastamosis = 304.5 cm/sec. Supf. Femoral Artery, mid = 59.1 cm./sec. cm/sec. Supf. Femoral Artery, dist = 43.1 cm./sec. Bypass graft, prox = 100.1 cm/sec. Profunda Femoral Artery = 41.2 cm./sec. Bypass graft, mid = 84.7 cm/sec. Popliteal Artery, mid = 53.5 cm./sec. Bypass graft, distal = 61.4 cm/sec. Post. Tibial Artery, prox = 38.4 cm./sec. Bypass graft, dist anastamosis = 249.2 cm/sec. Post Tibial Artery, mid = 37.4 cm./sec. Distal to bypass, Rt HOUSEHOLD WORKER distal = 154.8 cm/sec. Post Tibial Artery, dist. = 37.4 cm./sec. Ext. Iliac Artery, dist = 71.9 cm./sec. Peroneal Artery, prox = 21.5 cm./sec. Supf Femoral Artery, prox = 53.5 cm./sec. Peroneal Artery, mid = 23.2 cm./sec. Supf Femoral Artery, mid = 45 cm./sec. Peroneal Artery,dist. = 25.8 cm./sec. Supf Femoral Artery, dist. = 41.2 cm./sec. Ant.Tibial Artery, prox = 40.6 cm./sec. Profunda Femoral Artery = 47.8 cm./sec. Ant Tibial Artery, mid = 31.9 cm./sec. Popliteal Artery, mid = 38 cm./sec. Ant. Tibial Artery, distal = 34.5 cm./sec. Post. Tibial Artery, prox = 30.2 cm./sec. Post. Tibial Artery, mid = 34.5 cm./sec. Post. Tibial Artery, dist = 26.7 cm./sec. Peroneal Artery, prox = 31.1 cm./sec. Peroneal Artery, mid = 39.8 cm./sec. Peroneal Artery,dist = 33.7 cm./sec. Ant. Tibial Artery, prox = 31.5 cm./sec. Ant. Tibial Artery, mid = 38.6 cm./sec. Ant. Tibial Artery, dist = 42.1 cm./sec. Procedure Exam performed in department. VL/US Art Duplex Bilat Lower Ext Interpretation Summary Patent left to right femoral-femoral bypass with elevated velocities adjacent t o anastomoses; may be due to graft angulation. Preserved veolcities and waveforms in remainder of graft. Patent right lower extremity arteries with no focal stenosis or occlusion ident ified. Patent left lower extremity arteries with no focal stenosis or occlusion identi fied. Ordering Physician: Bibi Reyes Referring Physician: Bruce Brown Performed By: Kristina Lomeli RVT
--- NOTE | 2024-03-08 14:18 | ART_ITS ---
Reason For Study: S/P left to right fem-fem bypass, Left VINCENT stent Procedure A bilateral lower extremity continuous wave Doppler with analog waveform analysis and ankle brachial indexes. Left Segmental Pressures Left brachial= 132mmHg. Left posterior tibial artery = 123mmHg. Left dorsalis pedis artery = 127mmHg. Left digit = 119 mmHg. The left dorsalis pedis waveforms are triphasic. The left posterior tibial artery waveforms are triphasic. Right Segmental Pressures Right brachial= 134mmHg. Right posterior tibial artery = 107mmHg. Right dorsalis pedis artery = 116mmHg. Right digit = 104 mmHg. The right dorsalis pedis waveforms are triphasic. The right posterior tibial artery waveforms are biphasic. Indices The right ankle brachial index by the dorsalis pedis is 0.87. The right ankle brachial index by the posterior tibial artery is 0.80. The right digital-brachial index is 0.78. The left ankle brachial index by the dorsalis pedis is 0.95. The left ankle brachial index by the posterior tibial artery is 0.92. The left digital-brachial index is 0.89. VL/Ankle Brachial Index Interpretation Summary Right MICHAEL 0.87, moderate arterial insufficiency. Doppler/PVR waveforms of the r ight ankle moderately diminished at rest. Left MICHAEL 0.95, mild arterial insufficiency. Doppler/PVR waveforms of the left a nkle mildly diminished at rest. Ordering Physician: Bibi Reyes Referring Physician: Bruce Brown Performed By: Kristina Lomeli RVT
== END | disposition home or self-care (01) ==
PROVIDERS: PCP Family Medicine; Referring Provider Physician Assistant; Visit Provider Physician Assistant
DX: Z48.812 Encounter for surgical aftercare following surgery on the circulatory system (principal); Z95.828 Presence of other vascular implants and grafts
CPT/HCPCS: 93922; 93925

== ENCOUNTER → 2024-05-17 | Outpatient (CLI) | payer BC, SELFPAY ==
--- NOTE | 2024-05-17 13:54 | CT_ITS ---
CT angiogram of the abdominal aorta with bilateral lower extremity runoff with 3-dimensional reconstructions, with MIP reconstructions Clinical history: L to R fem-fem bypass, L EIA stent, claudication Technique: Multiple helical CT images were obtained from the domes the diaphragms to level of feet after intravenous administration of iodinated contrast with transaxial, coronal and sagittal multiplanar reconstructions. On a separate workstation, 3-dimensional reconstructions were obtained of the arterial vasculature using volume rendering technique and maximal intensity projection technique as per departmental protocol. The protocol utilizes one or more of the following dose reduction techniques: automated exposure control, adjustment of mA and/or kV according to patient size,and/or use of iterative reconstruction technique. RADIATION DOSAGE (If Supplied By Facility): CTDIvol = ( 6.44 ) mGy, DLP = ( 1211.27 ) mGycm COMPARISON: Prior study dated: 11/28/2022 FINDINGS: ABDOMEN / PELVIS: The visualized portions of the lungs demonstrate hypoventilatory changes. No focal infiltrate or consolidation. No pleural effusions. Normal heart size. No evidence of pericardial effusion or coronary calcifications. No evidence of thoracic aortic aneurysm. No focal lesion is seen in the liver, spleen or pancreas considering arterial phase of scanning which limits the examination. No evidence of gallstones. No evidence of hydronephrosis. 2 cm left adrenal nodule stable since the previous examination could be due to adenoma. Further follow-up exam in one year is recommended.. Normal caliber small bowel loops. No evidence of acute appendicitis. Thickening of the rectosigmoid colon probably due to underdistention.. VASCULAR STRUCTURES: Atherosclerotic changes in the abdominal aorta without evidence of aneurysm or dissection. No significant stenosis. There appears to be good opacification and patency of the celiac trunk, superior mesenteric artery. There appears to be good opacification and patency noted of the RIGHT and LEFT renal arteries. There appears to be good opacification and patency noted of the inferior mesenteric artery. ARTERIAL STRUCTURES OF THE RIGHT LOWER EXTREMITY: Common iliac artery: Occluded. External iliac artery: Occluded. Internal iliac arteries: Occluded. Common femoral artery: Reconstituted through collaterals. Femoral-femoral bypass graft appears to be patent. Superficial femoral arteries: Appear patent with good opacification. Popliteal artery: Appears patent with good opacification. Anterior tibial artery: Appears patent with good opacification. Posterior tibial artery: Appears patent with good opacification. Peroneal artery: Appears patent with opacification. ARTERIAL STRUCTURES OF THE LEFT LOWER EXTREMITY: Common iliac artery: Appears patent with good opacification. External iliac artery: Appears patent with good opacification. Internal iliac arteries: Appears patent with good opacification. Common femoral artery: Appears patent with good opacification. Superficial femoral arteries: Appear patent with good opacification. Popliteal artery: Appears patent with good opacification. Anterior tibial artery: Appears patent with good opacification. Posterior tibial artery: Appears patent with good opacification. Peroneal artery: Appears patent with opacification. CT/CTA Abd w/Runoff W/WO Contrast IMPRESSION: 1. New femoral-femoral stent to be patent without evidence of stenosis. 2. Occluded right common iliac, internal and external iliac arteries with reconstitution at the right common femoral artery unchanged. 3. Three-vessel runoff to both lower legs. 4. Stable left adrenal nodule likely due to adenoma for which further follow-up exam in one year is recommended. Electronically Signed: Kedar Hackett MD at 13:51 EST ,
[2024-05-17 14:32] LABS: Hemoglobin A1c 5.7 % (3.8-5.6)
[2024-05-17 14:41] LABS: ALB/GLOB Ratio 1.1 RATIO (0.9-2.4); AST(SGOT) 16 U/L (15-37); Alanine Aminotransfer ALT/SGPT 28 U/L (16-61); Albumin, Serum 4.1 g/dL (3.2-5.0); Alkaline Phosphatase 99 U/L (45-117); Anion Gap 3 (5-15); BUN 21 mg/dL (7-18); BUN/Creat Ratio 18.8 RATIO (10-20); Calcium,Total 9.6 mg/dL (8.5-10.1); Chloride 107 mmol/L (98-107); Cholesterol 169 mg/dL (200); Creatinine, Serum 1.12 mg/dL (0.70-1.30); EST Glomerular Filtration Rate 73 mL/min (>60); Est Glom Filt Rate - Afr Amer 88 mL/min (>60); Globulin 3.9 g/dL (2.2-4.2); Glucose 106 mg/dL (74-106); High Density Lipoprotein 32 mg/dL; PSA,Total - Annual Screen 3.77 ng/mL (0.00-4.00); Potassium 3.6 mmol/L (3.5-5.1); Sodium Level 138 mmol/L (136-145); Triglycerides 162 mg/dL; Very Low Density Lipoprotein 32 mg/dL (5-40)
== END | disposition home or self-care (01) ==
PROVIDERS: PCP Family Medicine; Referring Provider Physician Assistant; Visit Provider Physician Assistant
DX: Z00.00 Encounter for general adult medical examination without abnormal findings (principal); R73.9 Hyperglycemia, unspecified; Z12.5 Encounter for screening for malignant neoplasm of prostate; Z48.812 Encounter for surgical aftercare following surgery on the circulatory system; Z95.828 Presence of other vascular implants and grafts; I70.213 Atherosclerosis of native arteries of extremities with intermittent claudication, bilateral legs
CPT/HCPCS: 36415; 75635; 80053; 80061; 83036; 84153; Q9967; G0103

== ENCOUNTER → 2024-08-19 | Outpatient (CLI) | payer BC, SELFPAY ==
--- NOTE | 2024-08-19 13:53 | ADU_ITS ---
Reason For Study Reason For Study: S/P left to right Fem-Fem Bypass, Left VINCENT stent Right Velocities Left Velocities LT Fem to Rt Fem BPG noted. Common Femoral Artery, mid = 106.3 cm./sec. Prox to bypass, Lt EIA distal =118.2 Supf. Femoral Artery, prox = 94.8 cm./sec. cm/sec. Supf. Femoral Artery, mid = 60.1 cm./sec. Bypass graft, prox anastamosis = 190.6 cm/sec. cm/sec. Supf. Femoral Artery, dist = 39.2 cm./sec. Bypass graft, prox = 156.5 cm/sec. Profunda Femoral Artery = 42.8 cm./sec. Bypass graft, mid = 63.4 cm/sec. Popliteal Artery, mid = 40.4 cm./sec. Bypass graft, distal = 45.5 cm/sec. Post. Tibial Artery, prox = 47.8 cm./sec. Bypass graft, dist anastamosis = 535.4 cm/sec. Post Tibial Artery, mid = 42.9 cm./sec. 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 Post Tibial Artery, dist. = 39.2 cm./sec. Retrograde flow noted in the Rt EIA. Peroneal Artery, prox = 25.4 cm./sec. Supf Femoral Artery, prox = 45.9 cm./sec. Peroneal Artery, mid = 25.4 cm./sec. Supf Femoral Artery, mid = 48.7 cm./sec. Peroneal Artery,dist. = 15.6 cm./sec. Supf Femoral Artery, dist. = 40.2 cm./sec. Ant.Tibial Artery, prox = 37.6 cm./sec. Profunda Femoral Artery = 35.1 cm./sec. Ant Tibial Artery, mid = 47.6 cm./sec. Popliteal Artery, mid = 24.6 cm./sec. Ant. Tibial Artery, distal = 46.9 cm./sec. Post. Tibial Artery, prox = 27.5 cm./sec. Post. Tibial Artery, mid = 34.6 cm./sec. Post. Tibial Artery, dist = 28.9 cm./sec. Peroneal Artery, prox = 27.5 cm./sec. Peroneal Artery, mid = 43.1 cm./sec. Peroneal Artery,dist = 26.0 cm./sec. Ant. Tibial Artery, prox = 41.0 cm./sec. Ant. Tibial Artery, mid = 34.6 cm./sec. Ant. Tibial Artery, dist = 34.6 cm./sec. Procedure Exam performed in department. /US Art Duplex Bilat Lower Ext Interpretation Summary Patent left to right femoral-femoral bypass with >70% stenosis proximal to the distal anastomosis Ordering Physician: Bibi Reyes Referring Physician: Bruce Brown Performed By: Socorro Rizo
--- NOTE | 2024-08-19 13:53 | ART_ITS ---
Reason For Study Reason For Study: S/P left to right Fem-Fem Bypass, Left VINCENT stent Procedure A bilateral lower extremity continuous wave Doppler with analog waveform analysis and ankle brachial indexes. Left Segmental Pressures Left brachial= 128mmHg. Left posterior tibial artery = 137mmHg. Left dorsalis pedis artery = 118mmHg. Left digit = 137 mmHg. The left dorsalis pedis waveforms are triphasic. The left posterior tibial artery waveforms are triphasic. Right Segmental Pressures Right brachial= 135mmHg. Right posterior tibial artery = 118mmHg. Right dorsalis pedis artery = 117mmHg. Right digit = 101 mmHg. The right dorsalis pedis waveforms are triphasic. The right posterior tibial artery waveforms are triphasic. Indices The right ankle brachial index by the dorsalis pedis is 0.87. The right ankle brachial index by the posterior tibial artery is 0.87. The right digital-brachial index is 0.75. The left ankle brachial index by the dorsalis pedis is 0.87. The left ankle brachial index by the posterior tibial artery is 1.01. The left digital-brachial index is 1.01. VL/Ankle Brachial Index Interpretation Summary Right MICHAEL 0.87, moderate arterial insufficiency. Doppler/PVR waveforms of the r ight ankle normal at rest. Left MICHAEL 1.01, normal. Doppler/PVR waveforms of the left ankle normal at rest. Ordering Physician: Bibi Reyes Referring Physician: Bruce Brown Performed By: TOMMY CONTRERAS T
== END | disposition home or self-care (01) ==
LOC: CVS 13:53
PROVIDERS: PCP Family Medicine; Referring Provider Physician Assistant; Visit Provider Physician Assistant
DX: Z48.812 Encounter for surgical aftercare following surgery on the circulatory system (principal); I70.213 Atherosclerosis of native arteries of extremities with intermittent claudication, bilateral legs; Z95.828 Presence of other vascular implants and grafts
CPT/HCPCS: 93922; 93925

== ENCOUNTER 2024-09-01 07:01 | Day surgery (SDC) | payer BC, SELFPAY ==
[2024-09-01 07:27] VITALS: BMI 26.4
[2024-09-01 07:31] LABS: Hematocrit 48.6 % (40-54); Hemoglobin 16.1 g/dL (13.0-16.5); Mean Corp Hgb Conc 33.1 g/dL (32-36); Mean Corpuscular Volume 90.7 fL (80-94); Mean Platelet Vol. 10.9 fl (6.2-12.0); Platelet Count 254 K/mm3 (150-450); RBC Distribution Width CV 13.9 % (11.6-14.6); RBC Distribution Width SD 46.1 fl (35.1-43.9); Red Blood Count 5.36 M/mm3 (4.6-6.2); White Blood Count 9.6 K/mm3 (4.4-11.0)
[2024-09-01 08:00] LABS: Anion Gap 10 (5-15); BUN 16 mg/dL (4-19); BUN/Creat Ratio 11.4 RATIO (10-20); Calcium,Total 10.1 mg/dL (7.6-11.0); Carbon Dioxide 24.6 mmol/L (21.0-32.0); Chloride 107 mmol/L (98-108); EST Glomerular Filtration Rate 60 (>60); Estimated Creatinine Clearance 64.99 ml/min (50-250); Glucose 121 mg/dL (70-99); Potassium 4.6 mmol/L (3.3-5.1); Sodium Level 142 mmol/L (133-145)
--- NOTE | 2024-09-01 09:50 | HP.PCM_ITS ---
HPI - General HPI Narrative BRITTANY FLORES, is a 53 M who presents with prior left-right femoral femoral bypass with increasing velocities in distal graft. He has also had right thigh/hip/buttock claudication. [facility] Medical History Tinnitus Wears glasses Marijuana use Prostate disease Back pain Heartburn Smoker Leg cramps History of pain when walking Home Medications ?Medication ?Instructions ?Recorded ?Last Taken ?Type naproxen sodium 220 mg tablet 220 mg PO BID PRN Pain 0 09/26/22 Unknown History (Aleve) aspirin 81 mg chewable tablet 81 mg PO DAILY SUPPLEMEN T 11/18/22 12/29/22 History rosuvastatin 20 mg tablet 20 mg PO DAILY CHOLESTEROL 0 11/18/22 12/29/22 History cilostazol 100 mg tablet 100 mg PO BID #120 tabs 05/04 06/25 Unknown Rx Allergy/AdvReac Type Severity Reaction Status Date / Time No Known Allergies Allergy Verified 03/26/24 15:43 Family History Unknown Adopted Surgical History Hx of colonoscopy Hx of vasectomy History of surgery on left wrist Social History current occupational status: employed Smoking Status: Current every day smoker tobacco type: cigarettes ROS Constitutional Constitutional: Denies chills, fever(s), frequent falls, lethargy or weakness Eyes Eyes: Denies blind spots, change in vision or loss of vision ENT HEENT: Denies bleeding gums, hoarseness or sore throat Cardiovascular Cardiovascular: Denies abdominal pain, bluish discoloration of hand/feet, chest pain with activity, claudication, cold extremities, cyanosis, dyspnea on exertion, erythema on extremities, irregular heart rhythm, leg edema, leg ulcers, numbness in extremities or weakness in extremities Respiratory/Chest Respiratory/Chest: Denies cough, excessive phlegm production, shortness of breath at rest, shortness of breath with exertion or wheezing Gastrointestinal Gastrointestinal: Denies anorexia, change in stool character, constipation, diarrhea, melena or rectal bleeding Genitourinary Genitourinary: Denies dysuria or hematuria Musculoskeletal Musculoskeletal: Denies abnormal gait Integumentary Integumentary: Reports other Details: ; Denies erythema, non-healing lesions or wounds Neurologic Neurologic: Denies abnormal speech, focal weakness, headache(s), loss of vision, numbness, paresthesias or sensory deficit Hematologic/Lymphatic Hematologic/Lymphatic: Denies easy bleeding, easy bruising or lymphadenopathy Vital Signs Vital Signs Vital Signs: Weight Weight: 190 lb Body Mass Index (BMI) 26.4 Physical Exam Const alert, oriented x3, no apparent distress and healthy appearing General Appearance: cooperative; Negative for combative or lethargic Orientation / Consciousness: awake Exam Limitations: no limitations HEENT Head and Scalp: normocephalic and atraumatic Eyes EOMs intact bilaterally General Eye: normal appearance of both eyes Neck full ROM General: trachea midline Resp normal respiratory effort and no use of accessory muscles Effort and Inspection: Negative for labored, stridor or audible wheezes Cardio regular rate and regular rhythm Back/Spine Cervical Spine: cervical ROM normal Extremity full ROM, normal capillary refill and no clubbing, cyanosis or edema Skin no rashes or lesions noted and no wounds Neuro oriented x3, CN's II-XII intact bilaterally, no focal motor deficits and no sensory deficits noted Psych thought process normal, cooperative, affect normal, speech normal and activity/motor behavior normal Results Lab / Micro Data 09/01/24 07:06 09/01/24 07:06 Labs: Laboratory Results - last 24 hr 09/01/24 07:06: WBC 9.6, RBC 5.36, Hgb 16.1, Hct 48.6, MCV 90.7, MCH 30.0, MCHC 33.1, RDW Std Deviation 46.1 H, RDW Coeff of [place] 13.9, Plt Count 254, MPV 10.9, Sodium 142, Potassium 4.6, Chloride 107, Carbon Dioxide 24.6, Anion Gap 10, BUN 16, Creatinine 1.40 H, Estim Creat Clear Calc 64.99, Est GFR (MDRD) Non-Af 60, BUN/Creatinine Ratio 11.4, Glucose 121 H, Calcium 10.1 Assessment & Plan Assessment/Plan (1) S/P femoral-femoral bypass surgery: PLAN: -angiogram possible intervention
--- NOTE | 2024-09-01 15:36 | PCM.OPRPT ---
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 Post-Operative Diagnosis: Same Surgery/Procedure Performed: Angiogram unilateral lower extremity with angioplasty of distal anastomosis femoral-femoral bypass graft stenosis Intravascular ultrasound right superficial femoral artery, common femoral artery, femoral-femoral bypass graft plumber helper: No Type of Anesthesia: Local and Sedation,Conscious Procedure Start Time: 10:10 Procedure Stop Time: 10:55 Select all DRAINS/GRAFTS/IMPLANTS that apply: None Estimated Blood Loss: 3 Specimen collected: No Description of surgery: HPI: Patient is a 53-year-old male with a prior left to right femoral-femoral bypass graft who has had increasing velocities at the distal anastomosis on surveillance duplex as well as return of his right thigh and buttock claudication. He presents now for angiogram with possible intervention. Description of procedure: Upon obtaining form consent and verification correct patient procedure site patient was taken to the [facility] he was positioned prepped and draped in usual sterile fashion. Time was performed and conscious sedation administered Versed and fentanyl. Skin overlying the left proximal superficial femoral artery was anesthetized 1% lidocaine the vessel accessed under ultrasound guidance with a micropuncture needle wire. This then exchanged for micropuncture sheath through which hand-injection iliofemoral angiogram was performed revealing satisfactory positioning in the proximal superficial femoral artery with no extravasation or dissection. Through the micropuncture sheath an 018 access wire was advanced and the micropuncture sheath exchanged for the 6 Sami slender sheath. Patient was then heparinized allowed to circulate for 3 minutes. Through the slender sheath hand-injection subtraction angiography of the femoral-femoral bypass graft, proximal and distal anastomosis, and the right common femoral/profundofemoral/proximal superficial femoral artery was performed. This revealed stenosis greater than 75% at the distal anastomosis. Utilizing an angled catheter and a Glidewire we were able to navigate into the bypass graft proximal anastomosis advancing the wire and catheter through to the distal anastomosis and ultimately into the superficial femoral artery. The Glidewire was then exchanged for an 018 wire and intravascular ultrasound advanced and recorded pullback performed of the proximal superficial femoral artery, common femoral artery, bypass graft which confirmed greater than 75% stenosis at the distal anastomosis extending into the bypass graft. A [employer] angio sculpt 7 x 40 was then advanced in the position and inflated for multiple inflations centered on the lesion with satisfactory lesion response. Repeat angiography revealed resolution of the area of stenosis with no extravasation or dissection. A [employer] 7 x 4 paclitaxel coated angioplasty was then advanced in position and inflated to nominal for 3 minutes and deflated withdrawn. Completion angiography revealed satisfactory result with no residual stenosis, extravasation, or dissection. Wires and catheters then withdrawn and a Mynx closure device deployed followed by 5 minutes minute pressure with satisfactory stasis noted. The patient was then taken the recovery area with plan discharged to home. Surgical Findings: See above Complications Complications: No
== END 2024-09-01 15:20 | disposition home or self-care (01) ==
PROVIDERS: PCP Family Medicine; Referring Provider Surgery Trauma Surgery; Visit Provider Surgery Trauma Surgery
DX: I70.511 Atherosclerosis of nonautologous biological bypass graft(s) of the extremities with intermittent claudication, right leg (principal); F17.210 Nicotine dependence, cigarettes, uncomplicated; Z79.82 Long term (current) use of aspirin; Z79.899 Other long term (current) drug therapy; Z79.02 Long term (current) use of antithrombotics/antiplatelets; Z95.828 Presence of other vascular implants and grafts
CPT/HCPCS: 36245; 36415; 37224; 37252; 37253; 75710; 76937; 80048; 85027; 99152; 99153; C1725; C1753; C1760; C1769; C1894; C2623; Q9967